=== PATIENT | male | born 1955 | race Caucasian/White ===

== ENCOUNTER 2017-03-10 07:06 | Day surgery (SDC) | payer BC ==
[~2017-03-10 07:06] MED LIST: Lactated Ringers 1,000 ML IV SCH; Sodium Chloride 0.9% 10 ML Syringe FLUSH PRN
[2017-03-10] MEDS ORDERED: Midazolam 1 MG/ML 2 ML SDV IV ONE (09:00)
[2017-03-10] MEDS ORDERED: Lidocaine 2% 100 MG/5 ML Syringe IVPUSH ONE (09:00)
[2017-03-10] MEDS ORDERED: Propofol 200 MG/20 ML SDV IV ONE (09:00)
--- NOTE | 2017-03-10 09:01 | PCM.HPR ---
H & P Addendum review - H & P Addendum Review Date of Original H & P: 03/07/17 Date Reviewed: 03/10/17 Time Reviewed: 09:01 Patient was Examined: No Changes
--- NOTE | 2017-03-10 09:39 | PCM.OPNOTE ---
- General Post-Op/Procedure Note Date of Surgery/Procedure: 03/10/17 Operative Procedure(s): EGD with Bx. Colonoscopy Findings: Duodenitis Sig tics Pre Op Diagnosis: GERD. Wt Loss. Abd Pain Post-Op Diagnosis: Same Anesthesia Technique: KERRI Primary Surgeon: Jad Rutherford Anesthesia Provider: Timmy Covarrubias Complications: None Condition: Good
[2017-03-10 11:01] VITALS: BP 111/68
--- NOTE | 2017-03-10 13:45 | OR ---
DATE OF OPERATION: 03/10/2017 SURGEON: Jad Rutherford MD PREOPERATIVE DIAGNOSES: 1. Weight loss. 2. Gastroesophageal reflux disease. 3. Abdominal pain. POSTOPERATIVE DIAGNOSES: 1. Duodenitis. 2. Sigmoid diverticulosis. 3. Small hiatal hernia. PROCEDURE: 1. Esophagogastroduodenoscopy with biopsy. 2. Colonoscopy. ANESTHESIA: IV sedation. PROCEDURE IN DETAIL: The patient was brought to the procedure room, where IV sedation was administered. Oral bite block was placed and the upper endoscope advanced into the esophagus under direct vision without difficulty. Vocal cords were viewed and were normal. Upper endoscope was advanced to the third portion of the duodenum. Duodenum had mucosal abnormality with redness and hypertrophy. I did take two random biopsies of this. The remaining over the pylorus and antrum were normal. The body and fundus were normal. Retroflexion was normal. A small hiatal hernia is apparent without any complications. Air was removed from the stomach and the scope withdrawn through the remaining esophagus, which appears normal. The patient tolerated this portion of the procedure well. Next colonoscopy was performed, after digital rectal exam was done, which was normal. The colonoscope was inserted and advanced to the level of the cecum without difficulty. Cecal position was confirmed by identifying the appendiceal lumen and ileocecal valve. Prep was good and surfaces were well visualized. Upon withdrawing the scope, the ascending, transverse, and descending colon were normal in appearance. Sigmoid colon had a few diverticula present. Rectum was normal and retroflexion was normal. Air was removed and the scope withdrawn. The patient tolerated the procedure well and returned to recovery room in stable condition. I will have the patient follow up with me at the end of the week for review of biopsies. If no abnormalities are present that would account for his symptoms, I would consider having him repeat the CT scan. /[id number] SUZANNA/DAISY
== END 2017-03-10 10:45 | disposition home or self-care (01) ==
LOC: FB.SDS 07:06
PROVIDERS: ATTEND Surgery
DX: K29.30 Chronic superficial gastritis without bleeding (principal); K44.9 Diaphragmatic hernia without obstruction or gangrene; K57.30 Diverticulosis of large intestine without perforation or abscess without bleeding; I10 Essential (primary) hypertension; E66.9 Obesity, unspecified; Z86.010 Personal history of colon polyps; Z79.82 Long term (current) use of aspirin; Z79.899 Other long term (current) drug therapy; Z98.890 Other specified postprocedural states; Z68.33 Body mass index [BMI] 33.0-33.9, adult
CPT/HCPCS: 43239; 45378; 88305; 88342; J2250; J2704; J7120

== ENCOUNTER 2020-09-09 20:13 | Emergency (ER) | payer MEDICARE, BC ==
[2020-09-09 20:30] VITALS: BP 146/88; PULSE 68
--- NOTE | 2020-09-09 20:48 | EDM.PDOC ---
ED HPI GENERAL MEDICAL PROBLEM - General Chief Complaint: General Stated Complaint: hit head Time Seen by Provider: 09/09/20 20:40 Source of Information: Reports: Patient History Limitations: Reports: No Limitations - History of Present Illness INITIAL COMMENTS - FREE TEXT/NARRATIVE: 64-year-old male who states that he was pulling on his UTV to move it out of the way in his garage so that he can sweep and the tailgate loose and he fell backwards on his buttocks and then striking his head on the concrete floor of the garage. This occurred approximately 7 PM tonight. There was no loss of consciousness. He did sustain an abrasion to his occipital scalp and the bleeding has been controlled with direct pressure. He denies any pain in the area of the head. He denies any neck pain, back pain or buttock pain. He has no vision problems. He has no arm or leg weakness. There has been no dizziness or headache. In fact, he has no pain. He rates his pain as a 0/10. There are no o ther associated signs or symptoms. There are no other modifying factors. 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 Head Pain Score (Numeric/FACES): 0 - Related Data Allergies Allergy/AdvReac Type Severity Reaction Status Date / Time No Known Allergies Allergy Verified 09/03/16 11:16 Home Meds: Home Meds Aspirin [Halfprin] 81 mg PO DAILY 03/10/17 [History] Clobetasol [Temovate 0.05% Oint] 1 applic TOP ASDIRECTED PRN 03/10/17 [History] Dicyclomine [Bentyl] 10 mg PO TID 03/10/17 [History] Losartan Potassium 25 mg PO DAILY 03/10/17 [History] Simvastatin [Zocor] 40 mg PO BEDTIME 03/10/17 [History] Past Medical History HEENT History: Reports: Impaired Vision Cardiovascular History: Reports: High Cholesterol, Hypertension Gastrointestinal History: Reports: Colon Polyp Dermatologic History: Reports: Chronic Cellulitis - Infectious Disease History Infectious Disease History: Reports: Chicken Pox, Influenza, Measles, Mumps, Rubella - Past Surgical History GI Surgical History: Reports: Colonoscopy Social & Family History - Tobacco Use Tobacco Use Status *Q: Unknown Ever Used Tobacco (Nonsmoker.) - Caffeine Use Caffeine Use: Reports: Coffee - Alcohol Use Alcohol Use History: Yes Alcohol Use Frequency: Weekly (Usually on weekends. 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 We will give him a Tdap immunization today.) ED EXAM, GENERAL - Physical Exam Exam: See Below Exam Limited By: No Limitations General Appearance: Alert, WD/WN, No Apparent Distress Eye Exam: Bilateral Eye: EOMI, Normal Inspection, PERRL Ears: Normal External Exam, Hearing Grossly Normal Ear Exam: Bilateral Ear: Auricle Normal Nose: Normal Inspection, Normal Mucosa, No Blood Throat/Mouth: Normal Inspection, Normal Lips, Normal Oropharynx, Normal Voice, No Airway Compromise Head: Normocephalic, Other (Occipital abrasion and ecchymosis. No crepitus or depression noted.) Neck: Normal Inspection, Supple, Non-Tender, Full Range of Motion Respiratory/Chest: No Respiratory Distress, Lungs Clear, Normal Breath Sounds, No Accessory Muscle Use, Chest Non-Tender Cardiovascular: Normal Peripheral Pulses, Regular Rate, Rhythm, No Murmur Peripheral Pulses: 2+: Radial (L), Radial (R) GI/Abdominal: Normal Bowel Sounds, Soft, Non-Tender, No Mass Back Exam: Normal Inspection, Full Range of Motion. No: Paraspinal Tenderness, Vertebral Tenderness Neurological: Alert, Oriented, CN II-XII Intact, Normal Cognition, Normal Gait, No Motor/Sensory Deficits Psychiatric: Normal Affect Skin Exam: Warm, Dry, Normal Color, No Rash, Wound/Incision (Abrasion on oxygen) Course - Vital Signs Last Recorded V/S: Last Vital Signs Temp 36.1 C 04/10/21 20:24 Pulse 68 09/09/20 20:24 Resp 18 09/09/20 20:24 BP 146/88 H 09/09/20 20:24 Pulse Ox 97 09/09/20 20:24 - Orders/Labs/Meds Orders: Active Orders 24 hr Category Date Time Status Vaccines to be Administered [RC] PER UNIT ROUTINE Care 09/09/20 20:56 Ordered Bacitracin [Bacitracin Oint 1 GM] Med 09/09/20 20:55 Once 1 dose TOP ONETIME ONE Diphth,Pertuss(Acell),Tet Vac [Boostrix] Med 09/09/20 20:55 Once 0.5 ml IM .ONCE ONE Medication Orders Bacitracin (Bacitracin Oint 1 Gm U/D Packet) 1 dose TOP ONETIME ONE Stop: 09/09/20 20:56 Diphtheria/Tetanus/Acell Pertussis (Diphtheria,Pertussis(Acell),Tetanus Vaccine 0.5 Ml Syringe) 0.5 ml IM .ONCE ONE Stop: 09/09/20 20:56 Meds: Medications Generic Name Dose Route Start Last Admin Trade Name Freq PRN Reason Stop Dose Admin Bacitracin 1 dose 09/09/20 20:55 Bacitracin Oint 1 Gm U/D Packet TOP 09/09/20 20:56 ONETIME ONE Diphtheria/Tetanus/Acell Pertussis 0.5 ml 09/09/20 20:55 Diphtheria,Pertussis(Acell),Tetanus Vaccine 0.5 Ml Syringe IM 09/09/20 20:56 .ONCE ONE - Re-Assessments/Exams Free Text/Narrative Re-Assessment/Exam: 09/09/20 20:57: Patient with abrasion and ecchymosis to occipital scalp. There is no evidence of any significant head injury. There is no indication for CT scan of his head or cervical spine at this point. The wound will be cleaned and bacitracin will be applied. He will be given a Tdap immunization to bring his tetanus immunization status up-to-date. Precautions and reasons for return to the emergency department were discussed with the patient (and his ) while he was in the emergency department and were detailed in the patient's discharge instructions. Departure - Departure Time of Disposition: 21:08 Disposition: Home, Self-Care 01 Condition: Good Clinical Impression: Contusion of occipital region of scalp Qualifiers: Encounter type: initial encounter Qualified Code(s): S00.03XA - Contusion of scalp, initial encounter Scalp abrasion Qualifiers: Encounter type: initial encounter Qualified Code(s): S00.01XA - Abrasion of scalp, initial encounter Fall from standing Qualifiers: Encounter type: initial encounter Qualified Code(s): W19.XXXA - Unspecified fall, initial encounter - Discharge Information Instructions: Facial or Scalp Contusion, [id number], Abrasion, [id number] Forms: ED Department Discharge Additional Instructions: You do not appear to have a significant head injury at this point. He should clean the wound with mild soap and water and apply bacitracin to the wound one to 2 times daily until the wound has scabbed over. You can apply ice packs intermittently to the area for comfort as needed. Back to the emergency department for increasing pain, vomiting, vision problems, any signs of infection or any other concerning signs or symptoms. You were given a Tdap immunization today to bring your tetanus immunization status up-to-date. Sepsis Event Note (ED) - Focused Exam Vital Signs: Vital Signs Temp Pulse Resp BP Pulse Ox 09/09/20 20:24 36.1 C 68 18 146/88 H 97 - My Orders Last 24 Hours: My Active Orders 09/09/20 20:55 Bacitracin [Bacitracin Oint 1 GM] 1 dose TOP ONETIME ONE Diphth,Pertuss(Acell),Tet Vac [Boostrix] 0.5 ml IM .ONCE ONE 09/09/20 20:56 Vaccines to be Administered [RC] PER UNIT ROUTINE - Assessment/Plan Last 24 Hours: My Active Orders 09/09/20 20:55 Bacitracin [Bacitracin Oint 1 GM] 1 dose TOP ONETIME ONE Diphth,Pertuss(Acell),Tet Vac [Boostrix] 0.5 ml IM .ONCE ONE 09/09/20 20:56 Vaccines to be Administered [RC] PER UNIT ROUTINE
[2020-09-09] MEDS ORDERED: Bacitracin Oint 1 GM U/D Packet TOP ONE (20:55)
[2020-09-09] MEDS ORDERED: Diphtheria,Pertussis(Acell),Tetanus Vaccine 0.5 ML Syringe IM ONE (20:55)
== END 2020-09-09 21:20 | disposition home or self-care (01) ==
LOC: FB.ED 20:13
DX: S00.03XA Contusion of scalp, initial encounter (principal); E78.00 Pure hypercholesterolemia, unspecified; I10 Essential (primary) hypertension; Z79.82 Long term (current) use of aspirin; Z79.899 Other long term (current) drug therapy; Z23 Encounter for immunization; W22.8XXA Striking against or struck by other objects, initial encounter
CPT/HCPCS: 90471; 90715; 99283

== ENCOUNTER 2023-12-07 20:47 | Emergency (ER) | payer MEDICARE, BC ==
[2023-12-07] MEDS ORDERED: Sodium Chloride 0.9% 10 ML Syringe FLUSH PRN (21:22)
[2023-12-07 21:35] LABS: BASOPHILS PERCENT AUTO 0.3 % (0.3-3.8); EOSINOPHILS ABSOLUTE AUTO 0.2 x10-3/uL (0.0-0.6); EOSINOPHILS PERCENT AUTO 1.5 % (0.1-6.8); HEMATOCRIT 42.8 % (38.3-50.1); HEMOGLOBIN 14.8 g/dL (12.9-17.7); LYMPHOCYTES ABSOLUTE AUTO 1.4 x10-3/uL (0.5-4.5); LYMPHOCYTES PERCENT AUTO 12.1 % (15.8-45.3); MEAN CORPUSCULAR HGB CONC 34.5 g/dL (28.7-35.3); MEAN CORPUSCULAR VOLUME 95.7 fL (80.8-98.7); MEAN PLATELET VOLUME 7.7 fL (6.7-11.0); MONOCYTES ABSOLUTE AUTO 0.8 x10-3/uL (0.0-1.2); MONOCYTES PERCENT AUTO 7.1 % (5.5-15.2); NEUTROPHILS ABSOLUTE AUTO 8.9 x10-3/uL (1.7-6.9); PLATELET COUNT,PLT 205 x10(3)uL (117-477); RED BLOOD CELL COUNT 4.47 x10(6)uL (3.90-5.90); RED CELL DISTRIBUTION WIDTH 12.5 % (12.4-15.0); WHITE BLOOD CELL COUNT,WBC 11.2 x10-3/uL (3.2-10.1)
[2023-12-07 21:38] LABS: BLOOD UREA NITROGEN,BUN 21 mg/dL (7-18); BUN/CREATININE RATIO 26.3 (9-20); CALCIUM 8.8 mg/dL (8.6-10.2); CARBON DIOXIDE,CO2 26 mmol/L (21-32); CHLORIDE,CL 100 mmol/L (100-110); CREATININE 0.8 mg/dL (0.70-1.30); EST CRCL DRUG DOSING (CG) 94.31 mL/min; ESTIMATED GFR 95 mL/min (>60); GLUCOSE RANDOM 98 mg/dL (80-116); POTASSIUM,K 4.2 mmol/L (3.5-5.3); SODIUM,NA 137 mmol/L (135-145)
[2023-12-07 21:44] LABS: A/G RATIO 1.2; ALANINE AMINOTRANSFERASE,ALT 41 U/L (12-36); ALBUMIN 4.2 g/dL (3.2-4.6); ALKALINE PHOSPHATASE 75 IU/L (56-112); ASPARTATE AMNIOTRANSFERASE,AST 29 IU/L (5-25); BILIRUBIN TOTAL 1.1 mg/dL (0.1-1.3); PROTEIN TOTAL,TP 7.6 g/dL (6.0-8.0)
[2023-12-07] MEDS: Iopamidol 755 Mg/ML 100 ML Bottle IV ONE (22:24)
[2023-12-07 22:38] VITALS: BP 145/78; PULSE 65
[2023-12-07] MEDS: Fluconazole 100 MG Tab PO ONE (23:22)
== END 2023-12-07 23:37 | disposition home or self-care (01) ==
LOC: FB.ED 20:47
DX: B37.0 Candidal stomatitis (principal); I10 Essential (primary) hypertension; E78.00 Pure hypercholesterolemia, unspecified; Z79.899 Other long term (current) drug therapy
CPT/HCPCS: 36415; 70496; 70498; 80053; 83735; 85025; 86140; 99284; A9270; Q9967